=== PATIENT | male | born 1955 | race African-American/Black ===

== ENCOUNTER 2017-04-27 11:10 | Emergency (ER) | payer MEDICARE, OTHER ==
--- NOTE | ~2017-04-27 | CR72 ---
[facility] A Service of [facility] & [facility] / [facility] RADIOLOGY TEXT RESULTS PATIENT: FREEMAN LEVY LOCATION: [facility] : 51 UNIT #: [id number] AGE: [address]: Brian Cowart MD SEX: M ORDER DR: [id number] [facility] [address] [place], [place] [address] [id number] MR#: [id number] Acc #: [id number] NAME: FREEMAN LEVY : 1955 SEX: M STUDY DATE/TIME: 04/27/2017 12:28 UNIT: [facility] ROOM: STUDY DESCRIPTION: CR Chest Single View Portable Attending Physician: Brian Cowart M.D. Ordering Physician: Brian Cowart M.D. Primary Care Physician: [facility] MEDICAL IMAGING REPORT This report is preliminary unless electronic signature is present EXAM Chest x-ray 04/27/2017 HISTORY 61-year-old male in the ED complaining of 2-day history of shortness of air and dizziness. He reports a past history of congestive heart failure. Smoker. TECHNIQUE AP portable upright chest x-ray. FINDINGS Mild cardiomegaly is stable. Pulmonary vascularity is normal. The lungs are expanded and clear. No visible pulmonary infiltrate or pleural effusion. No change since 03/30/2017. IMPRESSION No active disease. Stable mild cardiomegaly. No change since 03/30/2017. Dictated by... Kennedy Salcido M.D. THIS IS AN ELECTRONICALLY VERIFIED REPORT Kennedy Salcido M.D. at 04/29/2017 8:49 AM TIARA/senia TD: 04/28/2017 09:02 JOB #: [id number] MEDICAL IMAGING REPORT Page 1 of 1 COPY
--- NOTE | ~2017-04-27 | EKG ---
PATIENT: FREEMAN LEVY UNIT #: [id number] Ventricular Rate: 80 BPM Atrial Rate: 80 BPM P-R Interval: 186 ms QRS Duration: 112 ms Q-T Interval: 426 ms QTC Calculation(Bezet): 491 ms P [place]: 35 degrees Calculated R [place]: 0 degrees Calculated T [place]: 74 degrees Diagnosis Line: Sinus rhythm with occasional Premature ventricular Diagnosis Line: complexes Diagnosis Line: Inferior infarct (cited on or before 27-APR-2017) Diagnosis Line: Abnormal ECG Diagnosis Line: When compared with ECG of 21-AUG-2016 06:04, Diagnosis Line: Premature ventricular complexes are now Present Diagnosis Line: Confirmed by SIERRA ALVARADO MD ([id number]) on Diagnosis Line: 04/28/2017 5:11:18 PM INTERPRETING MD: TANIA
[~2017-04-27 11:10] MED LIST: ALDACTONE25 MG PO; ASPIRIN81 MG PO; COREG3.125 MG PO; COUMADIN5 MG PO; HUMALOG100 U/ML SUBQ; HYDROCODON-ACE1 EAC7 PO; LANTUS100 UNITS/ SUBQ; LASIX80 MG PO; LIPITOR80 MG PO; LOVENOX120 MG/0.8 INJ; NITROGLYGERIN0.4 MG SL; NORVASC10 MG PO; PRAVACHOL20 MG PO; ZESTRIL40 MG PO
[2017-04-27 12:12] LABS: BASOPHIL# 0.1 X10e3 (0-0.3); BASOPHIL% 0.9 % (0-2.5); EOSINOPHIL# 0.7 X10e3 (0-0.7); EOSINOPHIL% 9.7 % (0.0-7.0); HEMATOCRIT 39.4 % (38.0-50.0); LYMPHOCYTE# 2.2 X10e3 (1.0-3.5); LYMPHOCYTE% 33.6 % (17.0-45.0); MEAN CELL VOLUME 90.9 FL (83-96); MEAN CORPUSCULAR HEMOGLOBIN 29.9 PG (28-34); MEAN CORPUSCULAR HGB CONC 32.9 g/dL (30-36); MEAN PLATELET VOLUME 8.1 FL (6.5-11.5); MONOCYTE# 0.4 X10e3 (0-1.0); MONOCYTE% 5.5 % (3.0-12.0); NEUTROPHIL# 3.4 X10e3 (1.5-7.1); NEUTROPHIL% 50.3 % (40-75); PLATELET COUNT 223 X10e3 (140-420); RED BLOOD COUNT 4.34 X10e (3.90-5.60); WHITE BLOOD COUNT 6.7 X10e3 (4.0-10.5)
[2017-04-27 12:14] LABS: DIFF IND NO
[2017-04-27 12:36] LABS: ALBUMIN SERUM 3.2 g/dL (3.5-5.0); BILIRUBIN, DIRECT 0.1 mg/dL (0.0-0.2); BILIRUBIN,INDIRECT 0.4 mg/dL (0.0-0.9); BILIRUBIN,TOTAL 0.5 mg/dL (0.2-2.0); BUN/CREATININE RATIO 11.81; CALCIUM SERUM 8.5 mg/dL (8.4-10.2); CREATININE SERUM 1.1 mg/dL (0.6-1.4); GLOM FILT RATE Estimated 82.4 mL/min (>60); POTASSIUM 3.5 mmol/L (3.5-5.1); PROTEIN TOTAL SERUM 7.2 g/dL (6.0-8.3)
== END 2017-04-27 13:00 | disposition home or self-care (01) ==
LOC: CED 11:10
PROVIDERS: Emergency Medicine
DX: R06.02 Shortness of breath (principal); J44.9 Chronic obstructive pulmonary disease, unspecified; F17.200 Nicotine dependence, unspecified, uncomplicated
CPT/HCPCS: 36415; 71010; 80048; 80076; 83880; 85025; 93005; 99285